=== PATIENT | female | born 1955 ===

== ENCOUNTER 2024-10-09 13:07 | Outpatient (AMB) | payer MEDICARE, SELFPAY | END 2024-10-10 11:28 | disposition home or self-care (01) | LOC: HO.HMGAL 13:07 | PROVIDERS: PCP Internal Medicine; Visit Provider Registered Nurse Emergency | DX: J30.89 Other allergic rhinitis (principal) | CPT/HCPCS: 95117; 95165 ==

== ENCOUNTER 2024-11-06 10:04 | Outpatient (AMB) | payer MEDICARE, SELFPAY | END 2024-11-06 10:23 | disposition home or self-care (01) | LOC: HO.HMGAL 10:04 | PROVIDERS: PCP Nurse Practitioner Family; Visit Provider Registered Nurse Emergency | DX: J30.89 Other allergic rhinitis (principal) | CPT/HCPCS: 95117; 95165 ==

== ENCOUNTER 2024-12-04 10:19 | Outpatient (AMB) | payer MEDICARE, SELFPAY | END 2024-12-04 10:19 | disposition home or self-care (01) | LOC: HO.HMGAL 10:19 | PROVIDERS: PCP Nurse Practitioner Family; Visit Provider Registered Nurse Emergency | DX: J30.89 Other allergic rhinitis (principal) | CPT/HCPCS: 95117; 95165 ==

== ENCOUNTER 2025-01-01 10:20 | Outpatient (AMB) | payer MEDICARE, SELFPAY | END 2025-01-01 10:21 | disposition home or self-care (01) | LOC: HO.HMGAL 10:20 | PROVIDERS: PCP Nurse Practitioner Family; Visit Provider Registered Nurse Emergency | DX: J30.89 Other allergic rhinitis (principal) | CPT/HCPCS: 95117; 95165 ==

== ENCOUNTER 2025-02-05 10:21 | Outpatient (AMB) | payer MEDICARE, SELFPAY | END 2025-02-05 10:22 | disposition home or self-care (01) | LOC: HO.HMGAL 10:21 | PROVIDERS: PCP Nurse Practitioner Family; Visit Provider Registered Nurse Emergency | DX: J30.89 Other allergic rhinitis (principal) | CPT/HCPCS: 95117; 95165 ==